=== PATIENT | female | born 1965 | race Caucasian/White ===

== ENCOUNTER 2019-09-01 14:30 | Emergency (ER) | payer OTHER, SELFPAY ==
[2019-09-01 14:31] VITALS: BP 131/65; PULSE 80; RESP 16; TEMP 37; O2SAT 98; BMI 33.0
--- NOTE | 2019-09-01 14:38 | XR_ITS ---
PROCEDURE: XR KNEE LT 3V CLINICAL INDICATION: fall, knee pain COMPARISON: No exams were available for comparison FINDINGS: No fracture or dislocation. No lytic or blastic change. There is normal mineralization. Osteoarthritic changes are present at the knee involving all 3 compartments greatest at the medial compartment and patellofemoral joint. Prominent bony hypertrophic changes are present at the tibial tuberosity. Ununited ossification center noted at the superior aspect of the patella. There are 2 calcific densities in the popliteal fossa region consistent with loose bodies the largest at 5 mm. IMPRESSION: No acute fracture. Osteoarthritic changes with loose bodies Dictated by: Alber Gomez MD 09/01/2019 15:42 Electronically signed by Alber Gomez MD in [facility] 09/01/2019 15:42
--- NOTE | 2019-09-01 14:38 | XR_ITS ---
PROCEDURE: XR FEMUR LT 2V CLINICAL INDICATION: fall Injury with pain COMPARISON: No exams were available for comparison FINDINGS: No fracture or dislocation. No lytic or blastic change. There is normal mineralization. The joint spaces are well-preserved. No significant degenerative/arthritic changes. No erosive changes evident. Other findings:None. IMPRESSION: No acute findings. Dictated by: Alber Gomez MD 09/01/2019 15:41 Electronically signed by Alber Gomez MD in [facility] 09/01/2019 15:41
--- NOTE | 2019-09-01 14:39 | XR_ITS ---
PROCEDURE: XR TIBIA FIBULA LT 2V CLINICAL INDICATION: fall, pain COMPARISON: XR ANKLE LT MIN 3V from 09/01/2019 FINDINGS: No acute fracture or dislocation is evident. Prominent bony hypertrophic changes are present at the tibial tuberosity with osteoarthritic changes noted at the knee joint. There is a transverse sclerotic density at the proximal shaft of the tibia which is felt to be a chronic finding. IMPRESSION: No acute findings. Dictated by: Alber Gomez MD 09/01/2019 15:44 Electronically signed by Alber Gomez MD in [facility] 09/01/2019 15:44
--- NOTE | 2019-09-01 14:39 | XR_ITS ---
PROCEDURE: XR FOREARM RT 2V CLINICAL INDICATION: fall Posttraumatic pain COMPARISON: No exams were available for comparison FINDINGS: No fracture or dislocation. No lytic or blastic change. There is normal mineralization. The joint spaces are well-preserved. No significant degenerative/arthritic changes. No erosive changes evident. Other findings:None. IMPRESSION: No acute findings. Dictated by: Alber Gomez MD 09/01/2019 15:40 Electronically signed by Alber Gomez MD in [facility] 09/01/2019 15:40
--- NOTE | 2019-09-01 14:39 | XR_ITS ---
PROCEDURE: XR WRIST RT MIN 3V CLINICAL INDICATION: fall Pain following injury COMPARISON: No exams were available for comparison FINDINGS: No fracture or dislocation. No lytic or blastic change. There is normal mineralization. The joint spaces are well-preserved. No significant degenerative/arthritic changes. No erosive changes evident. Other findings:None. IMPRESSION: No acute findings. Dictated by: Alber Gomez MD 09/01/2019 15:40 Electronically signed by Alber Gomez MD in [facility] 09/01/2019 15:40
--- NOTE | 2019-09-01 14:39 | XR_ITS ---
PROCEDURE: XR ANKLE LT MIN 3V CLINICAL INDICATION: fall COMPARISON: No exams were available for comparison FINDINGS: No fracture or dislocation. No lytic or blastic change. There is normal mineralization. The joint spaces are well-preserved. No significant degenerative/arthritic changes. No erosive changes evident. Other findings:None. IMPRESSION: No acute findings. Dictated by: Alber Gomez MD 09/01/2019 15:45 Electronically signed by Alber Gomez MD in [facility] 09/01/2019 15:45
--- NOTE | 2019-09-01 14:40 | [facility].EDGENADL ---
ED Disposition Clinical Impression: Fall Qualifiers: Encounter type: initial encounter Qualified Code(s): W19.XXXA - Unspecified fall, initial encounter Contusion of left knee Qualifiers: Encounter type: initial encounter Qualified Code(s): S80.02XA - Contusion of left knee, initial encounter Left ankle sprain Qualifiers: Encounter type: initial encounter Involved ligament of ankle: anterior talofibular ligament Qualified Code(s): S93.492A - Sprain of other ligament of left ankle, initial encounter Disposition: Home, Self-Care Condition on Discharge: Fair Instructions: DI for Ankle Sprain, DI for Knee Sprain Additional Instructions: You have been evaluated for fall, left ankle sprain and left knee contusion. Please take Tylenol and ibuprofen for pain. You may use a compressive Gio wrap to prevent swelling. Follow-up with your primary care doctor. Return to the emergency department if you have any new or worsening symptoms, other concerns. Time of Disposition: 16:09 - Critical Care Critical Care Time: No Attestation: On , the high probability of a clinically significant, sudden or life threatening deterioration of the following system(s) required my full and direct attention, intervention and personal management. The time I documented below is in addition to time spent performing reported procedures but includes the following listed in this critical care notation. Medical Decision Making - [place] Inquiry Pt receiving controlled substance: No Vital Signs: 09/01/19 14:31 Temperature 98.6 F Temperature Source Oral Pulse Rate [Left Radial] 80 Respiratory Rate 16 Blood Pressure [Right Arm] 131/65 Blood Pressure Mean [Right Arm] 87 Blood Pressure Position [Right Arm] Sitting 02 Sat by Pulse Oximetry 98 Oxygen Delivery Method Room Air Orders (Tests/Meds): ED MEDICATIONS Discontinued Medications Generic Name Dose Route Start Last Admin Trade Name Freq PRN Reason Stop Dose Admin Oxycodone/Acetaminophen 1 each 09/01/19 14:43 09/01/19 14:44 Percocet 5/325mg Tablet PO 09/01/19 14:44 1 each ONCE ONE Administration Tetanus/Reduced Diphtheria/Acell Pertussis 0.5 ml 09/01/19 14:52 Adacel Tdap 0.5ml Syringe IM 09/01/19 14:53 .ONCE ONE - Radiology Data #1 Image(s): Tib/Fib Image Reviewed: Yes I reviewed the patient's radiology results, Yes I have reviewed radiologist's interpretation Bony erosion at the proximal tibia. No obvious fracture or dislocation. #2 Image(s): Wrist Image Reviewed: Yes I reviewed the patient's radiology results, Yes I have reviewed radiologist's interpretation Radius and ulna without abnormality. No changes in joint space. No acute findings. Medical Decision Narrative: In summary this is a previously healthy 54-year-old female presenting to the emergency department with left knee and ankle pain after a fall. Patient is awake and alert on arrival. Vital signs are stable. Differential diagnoses include patella fracture, tibial plateau fracture, other fracture of the left lower extremity, sprain, strain. Plan to obtain x-rays of the left femur, knee, tib-fib, ankle, right wrist patient does not have headache, neck pain, chest pain. Will not obtain further trauma work-up. Patient given a [place] for pain. X-rays do not show fracture or dislocation. X-ray of the tib-fib shows bony erosion at the proximal tibia, consistent with osteoarthritic changes. On reassessment patient's pain was controlled. She was able to ambulate with minimal assistance. I counseled her that she should take Tylenol ibuprofen for pain. She may use a compressive wrap on her knee to help with pain and swelling. Recommended to follow-up with her PCP within the next few days. Given return precautions. Stable for discharge. General Adult HPI - General Chief complaint: Fall Stated complaint: Fall, Left leg, Right Wrist Time Seen by Provider: 09/01/19 14:40 Mode
[2019-09-01 14:41] VITALS: BMI 33.2
--- NOTE | 2019-09-01 15:01 | PC.NURSE ---
Pt to rad.
--- NOTE | 2019-09-01 15:53 | PC.NURSE ---
Pt ambulated to bathroom with assist of daughter,with no problem.
[2019-09-01 16:04] VITALS: BP 167/100; PULSE 70; O2SAT 97
[2019-09-01 16:51] VITALS: BP 132/74; PULSE 78; RESP 16; TEMP 36.6; O2SAT 98
== END 2019-09-01 16:52 | disposition home or self-care (01) ==
PROVIDERS: Emergency Provider Emergency Medicine
DX: S80.02XA Contusion of left knee, initial encounter (principal); S93.492A Sprain of other ligament of left ankle, initial encounter; Z23 Encounter for immunization; W01.0XXA Fall on same level from slipping, tripping and stumbling without subsequent striking against object, initial encounter; Y92.524 Gas station as the place of occurrence of the external cause
CPT/HCPCS: 73090; 73110; 73552; 73562; 73590; 73610; 90471; 90715; 99282